=== PATIENT | male | born 1980 | race Caucasian/White ===

== ENCOUNTER → 2019-12-29 | Outpatient (REF) | LOC: M LABSMTC 08:00 → EDSTATUS 12:00 | PROVIDERS: ATTEND Pediatrics | DX: Z20.828 Contact with and (suspected) exposure to other viral communicable diseases (principal) ==

== ENCOUNTER → 2022-04-11 | Outpatient (REF) ==
[2022-04-11 12:35] LABS: RSV AMPLIFICATION POSITIVE (NEGATIVE)
== END ==
LOC: M EMP 11:46
PROVIDERS: ATTEND Family Medicine
DX: Z11.52 Encounter for screening for COVID-19 (principal)